=== PATIENT | female | born 1960 | race Hispanic/Latino ===

== ENCOUNTER 2016-07-25 09:54 | Emergency (ER) | payer OTHER ==
[~2016-07-25] VITALS: Ht 162.6 cm; Wt 94.3 kg
[2016-07-25 09:59] VITALS: BP 121/75
--- NOTE | 2016-07-25 12:56 | ED SKIN/ALLERGY COMPLAINT ---
History of Present Illness General Chief Complaint: Laceration Procedure Stated Complaint: LAC TO L RING FINGER Source: patient, family () Exam Limitations: language barrier Vital Signs & Intake/Output Vital Signs & Intake/Output Vital Signs Date Time Temp Pulse Resp B/P Pulse O2 O2 Flow FiO2 Ox Delivery Rate 07/25 0959 97.1 90 16 121/75 96 Room Air Allergies Coded Allergies: No Known Allergies (07/25/16) Reconcile Medications No Known Home Medications Triage Note: PT CUT L RING FINGER Triage Nurses Notes Reviewed? yes HPI: this patient is a 56-year-old female who presented to the emergency department today accompanied by her for evaluation of a laceration to her left index finger. The patient does not speak Yakut as her for sling which, so her translated. The patient reported that she is having pain in her left finger which she is unable to quantify. She reported that it is not higher than a 10. She denied any numbness or tingling in her finger. No radiation of the pain. No decreased motion of her finger. The patient reported that she was cutting food with a knife and it slipped and cut her finger. She denied any wrist or elbow pain. She is does not know when her last tetanus immunization was. (OLGA VERNON PA-C) Past History Travel History Traveled to [place] past 21 day No Medical History Any Pertinent Medical History? 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 No (OLGA VERNON PA-C) Review of Systems Review of Systems Constitutional: Reports: no symptoms. EENTM: Reports: no symptoms. Respiratory: Reports: no symptoms. Cardiovascular: Reports: no symptoms. GI: Reports: no symptoms. Genitourinary: Reports: no symptoms. Musculoskeletal: Reports: no symptoms. Skin: Reports: see HPI. Neurological/Psychological: Reports: no symptoms. All Other Systems: Reviewed and Negative (OLGA VERNON PA-C) Physical Exam Physical Exam General Appearance: well developed/nourished, no apparent distress, alert, awake Comments: Well-developed well-nourished person in no acute distress HEENT: Head normocephalic, moist mucous membranes Neck: Supple, no lymphadenopathy Back: Normal gait Respiratory: No respiratory distress. Speaking in full sentences Extremities: No edema, full range of motion Neuro: Alert and oriented x3 Psych: Mood affect normal, normal memory normal judgment. Skin: Warm and dry, no rash on exposed skin. Approximately 1 cm in length, linear laceration to the dorsal aspect of the distal left second digit with no active bleeding, no stranding erythema or edema, and mild tenderness to palpation. Full range of motion of the digit. No nailbed involvement. No tendon injury (OLGA VERNON PA-C) Progress Differential Diagnosis: abscess/cellulitis, skin laceration, skin tear, skin avulsion, skin abrasion, tendon injury Plan of Care: Current Medications Sig/Flavio Start time Last Medication Dose Stop Time Status Admin Lidocaine 20 ML ONCE ONE 07/25 1300 UNVr (Lidocaine 1%) 07/25 1301 Tetanus/Diphtheria 0.5 ML ONCE ONE 07/25 1300 UNVr Toxoids Adsorbed 07/25 1301 (Decavac) Departure Departure Disposition: HOME OR SELF CARE Condition: Stable Clinical Impression Primary Impression: Skin laceration Referrals: PATIENT HAS NO PRIMARY CARE DR (PCP/Family) Additional Instructions: please keep the wound site clean and dry. You may use the splint provided to you for extra support. Return to the emergency department in 7-10 days for a wound check and suture removal. Return to the emergency department sooner for any worsening symptoms, pus drainage from the wound site, spreading of redness around site, fevers, or for any other concerns. Departure Forms: Customer Survey General Discharge Information Prescriptions: Current Visit Scripts No Known Home Medications (OLGA VERNON PA-C) PA/DIRECTOR SYSTEMS Co-Sign Statement Statement: ED Attending supervision documentation- [] I saw and evaluated the patient. I have also reviewed all the pertinent lab results and diagnostic results. I agree with the findings and the plan of care as documented in the PA's/DIRECTOR SYSTEMS's documentation. [X] I have reviewed the ED Record and agree with the PA's/DIRECTOR SYSTEMS's documentation. [] Additions or exceptions (if any) to the PAs/DIRECTOR SYSTEMS's note and plan are summarized below: [] (RONNIE BRADLEY DO) Procedures Laceration/Wound Repair Laceration/Wound Repair: Wound Location: upper extremity (left second digit) Wound's Depth, Shape: linear, subcutaneous Wound Length (cm): 1.0 Wound Explored: irrigated extensively Irrigated w/ Saline (ccs): 500 Betadine Prep? Yes Anesthesia: 1% lidocaine Volume Anesthetic (ccs): 2 Wound Repaired With: sutures Suture Size/Type: 5:0 Number of Sutures: 5 Layer Closure? No Sterile Dressing Applied: Yes Splint Applied? No Sling Applied? No Tetanus Status: not up to date Progress: RUTH student assisted in the laceration closure. Patient tolerated the procedure well. (SAULO WISE,OLGA)
== END 2016-07-25 14:10 ==
LOC: ERH 09:54
DX: S61.211A Laceration without foreign body of left index finger without damage to nail, initial encounter (principal); W26.0XXA Contact with knife, initial encounter; Y93.G1 Activity, food preparation and clean up
CPT/HCPCS: 90471; 90714

== ENCOUNTER 2016-08-06 11:22 | Emergency (ER) | payer OTHER ==
[~2016-08-06] VITALS: Ht 162.6 cm; Wt 90.7 kg
[2016-08-06 11:27] VITALS: BP 125/82
--- NOTE | 2016-08-06 11:53 | ED ANIMAL BITE/WOUND CHECK ---
History of Present Illness General Chief Complaint: Suture Removal/Wound Recheck Stated Complaint: SUTURE REMOVAL Source: patient, family Exam Limitations: no limitations Vital Signs & Intake/Output Vital Signs & Intake/Output Vital Signs Date Time Temp Pulse Resp B/P Pulse O2 O2 Flow FiO2 Ox Delivery Rate 08/06 1127 97.5 74 18 125/82 95 Room Air Allergies Coded Allergies: No Known Allergies (07/25/16) Reconcile Medications No Known Home Medications Triage Note: RECEIVED 56 YO FEMALE HERE FOR SUTURE REMOVAL FROM LEFT FORTH FINGER Triage Nurses Notes Reviewed? yes HPI: 56-year-old female arrived to triage room 5 for suture removal of left fourth finger. Laceration has healed well with no signs of infection. Mild tenderness to one edge of the suture site due to tiny blister that is formed. (TESHA BANUELOS APRN) Past History Travel History Traveled to [place] past 21 day No Medical History Any Pertinent Medical History? 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 No (TESHA BANUELOS APRN) Review of Systems Review of Systems Constitutional: Reports: no symptoms. EENTM: Reports: no symptoms. Respiratory: Reports: no symptoms. Cardiovascular: Reports: no symptoms. GI: Reports: no symptoms. Genitourinary: Reports: no symptoms. Musculoskeletal: Reports: no symptoms. Skin: Reports: no symptoms. Neurological/Psychological: Reports: no symptoms. Hematologic/Endocrine: Reports: no symptoms. Immunologic/Allergic: Reports: no symptoms. All Other Systems: Reviewed and Negative (TESHA BANUELOS APRN) Physical Exam Physical Exam General Appearance: well developed/nourished, mild distress Head: atraumatic Eyes: Bilateral: PERRL, EOMI. Ears, Nose, Throat: normal pharynx, normal ENT inspection, hearing grossly normal Neck: normal inspection, supple Respiratory: normal breath sounds Cardiovascular: regular rate/rhythm Gastrointestinal: soft, non-tender Back: normal inspection Extremities: normal range of motion Neurologic/Psych: awake, alert, oriented x 3, normal mood/affect Skin: intact, normal color, warm/dry Lymphatic: no anterior cervical neeru Comments: 5 sutures intact to the tip of the left fourth finger no signs of infection, no erythema, no drainage but slight tenderness to one end of suture line pain size blister noted. (TESHA BANUELOS APRN) Progress Differential Diagnosis: SUTURE REMOVAL Plan of Care: 5 sutures removed intact, patient tolerated the procedure well. Bacitracin applied along with a Band-Aid by me (TESHA BANUELOS APRN) Departure Departure Time of Disposition: 1204 Disposition: HOME OR SELF CARE Condition: Stable Clinical Impression Primary Impression: Visit for suture removal Referrals: PATIENT HAS NO PRIMARY CARE DR (PCP/Family) Additional Instructions: Please keep area clean and dry Departure Forms: Customer Survey General Discharge Information Prescriptions: Current Visit Scripts No Known Home Medications (TESHA BANUELOS APRN) PA/JACQUARD CARD CUTTER Co-Sign Statement Statement: ED Attending supervision documentation- [] I saw and evaluated the patient. I have also reviewed all the pertinent lab results and diagnostic results. I agree with the findings and the plan of care as documented in the PA's/JACQUARD CARD CUTTER's documentation. x I have reviewed the ED Record and agree with the PA's/JACQUARD CARD CUTTER's documentation. [] Additions or exceptions (if any) to the PAs/JACQUARD CARD CUTTER's note and plan are summarized below: [] (BRITTA CAMEJO,CHIVO)
== END 2016-08-06 12:09 ==
LOC: ERH 11:22
DX: S61.215A Laceration without foreign body of left ring finger without damage to nail, initial encounter (principal); X58.XXXA Exposure to other specified factors, initial encounter
CPT/HCPCS: 99281